=== PATIENT | female | born 1975 | race Hispanic/Latino ===

== ENCOUNTER 2018-05-11 15:35 | Emergency (ER) | payer SELFPAY ==
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
[2018-05-11] MEDS ORDERED: HYDROcodone/Acetaminophen 10/325 mg Tablet ONE (18:14)
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
== END 2018-05-11 18:09 | disposition home or self-care (01) ==
LOC: ERS 15:35
DX: S40.012A Contusion of left shoulder, initial encounter (principal); M54.5 Low back pain; V43.52XA Car driver injured in collision with other type car in traffic accident, initial encounter
CPT/HCPCS: 72100